=== PATIENT | male | born 1985 | race Caucasian/White ===

== ENCOUNTER 2017-10-26 15:50 | Emergency (ER) | payer OTHER, BC ==
[2017-10-26 16:12] VITALS: BP 115/75; PULSE 99; TEMP 98.7; BMI 23.7
--- NOTE | 2017-10-26 16:13 | PDOC ---
Rapid Medical Evaluation Chief Complaint: Migraine Headache Time Seen by Provider: 10/26/17 16:07 Medical Evaluation: Allergies Allergy/AdvReac Type Severity Reaction Status Date / Time No Known Allergies Allergy Verified 08/06/14 14:50 10/26/17 16:09 I have performed a brief in-person evaluation of this patient. The patient presents with a chief complaint of: headaches x 1 month intermittently, came in today as he now has insurance. Took his mother in law's fioricit yesterday which improved symptoms Pertinent physical exam findings:unremarkable I have ordered the following:nothing The patient will proceed to the ED for further evaluation.
--- NOTE | 2017-10-26 17:49 | PDOC ---
History of Present Illness - General Chief Complaint: Headache Stated Complaint: MIGRAINES Time Seen by Provider: 10/26/17 16:07 History Source: Patient Exam Limitations: No Limitations - History of Present Illness Initial Comments: 10/26/17 17:46 CHIEF COMPLAINT: Intermittent headache for one month reports "it's debilitating " HISTORY OF PRESENT ILLNESS: Patient is a 32-year-old male with history of headache however was never evaluated by neurology presents with one month of increasing headache in intensity associated with photophobia, no vomiting, no dizziness. Reports not having insurance for several months and has attempted to take Tylenol, Motrin, Advil, Aleve, without resolved symptoms. Patient reports that it is affecting his job and unable to work a regular basis. Has taken his [id number]'s Fioricet with resolve of symptoms. Requesting Fioricet. Timing/Duration: reports: other (for one month increase in intensity) Associated Symptoms: denies: fatigue, fever/chills, insomnia, loss of consciousness, muscle spasms, nausea/vomiting, numbness in legs/feet, paresthesia, ringing in ears, seizures, sleepy, slurred speech, tingling in legs /feet, trouble walking, vision changes, weakness Past History - Past Medical History Allergies/Adverse Reactions: Allergies Allergy/AdvReac Type Severity Reaction Status Date / Time No Known Allergies Allergy Verified 10/26/17 16:12 Home Medications: Ambulatory Orders Acetaminophen/Caffeine/Butalb [Fioricet -] 1 tab PO Q4H #18 tablet MDD 6 Acetaminophen/Caffeine/Butalb [Fioricet -] 1 tab PO Q4H #18 tablet MDD 6 COPD: No - Suicide/Smoking/Psychosocial Hx Smoking History: Current every day smoker Number of Cigarettes Smoked Daily: 10 Information on smoking cessation initiated: No Hx Alcohol Use: No Substance Use Type: Marijuana Review of Systems - Review of Systems Constitutional: No: Fever HEENTM: Yes: Symptoms Reported, Other (positive photophobia). No: Eye Pain, Blurred Vision, Tearing, Recent change in vision, Double Vision, Cataracts, Throat Pain, Throat Swelling, Difficulty Swallowing, Mouth Swelling Respiratory: No: Symptoms reported Cardiac (ROS): No: Symptoms Reported ABD/GI: No: Symptoms Reported Musculoskeletal: No: Symptoms Reported Integumentary: No: Symptoms Reported Neurological: No: Symptoms reported Hematologic/Lymphatic: No: Symptoms Reported All Other Systems: Reviewed and Negative *Physical Exam - Vital Signs Last Vital Signs Temp Pulse Resp BP Pulse Ox 98.7 F 99 H 18 115/75 99 10/26/17 16:07 10/26/17 16:07 10/26/17 16:07 10/26/17 16:07 10/26/17 16:07 - Physical Exam General Appearance: Yes: Appropriately Dressed. No: Apparent Distress HEENT: positive: SHAILESH, Normal ENT Inspection, Normal Voice, Symmetrical, TMs Normal, Pharynx Normal, Other (no nystagmus). negative: Pharyngeal Erythema, Tonsillar Exudate, Tonsillar Erythema, Nasal Congestion, Rhinorrhea, Sinus Tenderness, TM Bulging, TM Erythema Neck: positive: Trachea midline. negative: Tender, Tender lateral, Tender midline Respiratory/Chest: positive: Lungs Clear, Normal Breath Sounds Cardiovascular: positive: Regular Rhythm, Regular Rate Lymphatic: negative: Adenopathy Musculoskeletal: positive: Normal Inspection Integumentary: positive: Normal Color, Dry Neurologic: positive: mailing specialist II-XII NML intact, Fully Oriented, Alert, Normal Mood/ Affect, Normal Response, Motor Strength 5/5 ED Treatment Course - RADIOLOGY Radiology Studies Ordered: Category Date Time Status HEAD CT WITHOUT CONTRAST [CT] Stat CT Scan 10/26/17 17:37 Ordered Medical Decision Making - Medical Decision Making 10/26/17 17:49 A/P: Patient here with migraine, photophobia, has never been evaluated by neurology however PMD. Patient reports that headache is increasing in intensity , tension-like in nature. Because patient is noted been evaluated with increase intensity of headache over the last 4 weeks will perform head CT 10/26/17 19:46 CT scan with no acute intracranial pathology or sinusitis. Will DC on Fioricet follow-up with neurology *DC/Admit/Observation/Transfer Diagnosis at time of Disposition: Migraine Qualifiers: Migraine type: unspecified Status migrainosus presence: with status migrainosus Intractability: not intractable Qualified Code(s): G43.901 - Migraine, unspecified, not intractable, with status migrainosus - Discharge Dispostion Disposition: HOME Condition at time of disposition: Stable Admit: No - Prescriptions Prescriptions: Acetaminophen/Caffeine/Butalb [Fioricet -] 1 tab PO Q4H #18 tablet MDD 6 Acetaminophen/Caffeine/Butalb [Fioricet -] 1 tab PO Q4H #18 tablet MDD 6 - Referrals Referrals: Ranjit Ernst DO [Staff Physician] - - Patient Instructions Printed Discharge Instructions: Migraine Headaches (Alternative Therapy) Additional Instructions: Increase fluid intake, may take Tylenol for minor headache, Fioricet for increased headache please follow-up with neurology as soon as possible. - Post Discharge Activity Forms/Work/School Notes: Back to Work
== END 2017-10-26 20:20 | disposition home or self-care (01) ==
LOC: JERFT 15:50
DX: G43.901 Migraine, unspecified, not intractable, with status migrainosus (principal)
CPT/HCPCS: 70450-TC; 99281-25

== ENCOUNTER 2018-07-04 21:47 | Inpatient (IN) | payer BC, OTHER ==
--- NOTE | 2018-07-04 21:55 | PDOC ---
Rapid Medical Evaluation Time Seen by Provider: 07/04/18 21:50 Medical Evaluation: Allergies Allergy/AdvReac Type Severity Reaction Status Date / Time No Known Allergies Allergy Verified 10/26/17 16:12 07/04/18 21:50 Pt reports falling today. Pt states he took two fiorcets and he fell up the stairs. Denies LOC or hitting his head. He states he feels fine at this time. States his mother thought he looked dizzy, so she called the ambulance. Admits to smoking marijuana Exam: NAD, AAOx3 Orders: utox Pt to proceed to ED for further evaluation Discharge Disposition - Diagnosis Fall - Referrals - Patient Instructions - Post Discharge Activity
[2018-07-04 21:56] VITALS: BMI 26.5
[2018-07-04] MEDS ORDERED: SODIUM CHLORIDE 1,000 ML IV STA (22:23)
[2018-07-04 22:44] LABS: COCAINE, UR NEGATIVE ng/ml (CUTOFF=300); METHADONE, UR NEGATIVE ng/ml (CUTOFF=300); OPIATES, URI NEGATIVE ng/ml (CUTOFF=300); PHENCYCLIDINE,URINE NEGATIVE ng/ml (CUTOFF=25); URINE AMPHETAMINES NEGATIVE ng/ml (CUTOFF=500); URINE BENZODIAZEPINES NEGATIVE ng/ml (CUTOFF=200)
[2018-07-04 22:48] LABS: URINE BARBITURATES POSITIVE ng/ml (CUTOFF=200)
--- NOTE | 2018-07-04 22:54 | PDOC ---
History of Present Illness - General Chief Complaint: Substance Abuse Stated Complaint: OVERDOSAGE Time Seen by Provider: 07/04/18 21:50 History Source: Patient - History of Present Illness Initial Comments: 07/04/18 22:46 32 year male reports taking 2 fiorecet for headache. denies using drug prior to this. patient reports smoking marijuana and cigarettes however denies any use today. as per mom patient fell and is with slurred speech . mom called 911 due to altered mental status and falling up the stairs. as per mom patient has been abusing percocets. patient denies any drug use. denies HI/SI Past History - Past Medical History Allergies/Adverse Reactions: Allergies Allergy/AdvReac Type Severity Reaction Status Date / Time No Known Allergies Allergy Verified 07/04/18 21:53 Home Medications: Ambulatory Orders Acetaminophen/Caffeine/Butalb [Fioricet -] 1 tab PO Q4H #18 tablet MDD 6 Acetaminophen/Caffeine/Butalb [Fioricet -] 1 tab PO Q4H #18 tablet MDD 6 COPD: No - Suicide/Smoking/Psychosocial Hx Smoking History: Current every day smoker Number of Cigarettes Smoked Daily: 20 Information on smoking cessation initiated: No Hx Alcohol Use: No Drug/Substance Use Hx: Yes ([facility]) Substance Use Type: Marijuana Review of Systems - Review of Systems Able to Perform ROS?: Yes Is the patient limited Swiss proficient: No Constitutional: No: Symptoms Reported, See HPI, Chills, Diaphoresis, Fever, Loss of Appetite, Malaise, Night Sweats, Weakness, Weight Stable, Unintentional Wgt. Loss, Unexplained wgt Loss, Other Neurological: Yes: Headache, Weakness *Physical Exam - Vital Signs Last Vital Signs Temp Pulse Resp BP Pulse Ox 97.7 F 71 18 104/46 L 99 07/04/18 21:54 07/04/18 21:54 07/04/18 21:54 07/04/18 21:54 07/04/18 21:54 - Physical Exam General Appearance: Yes: Other (slurred speech) Respiratory/Chest: positive: Lungs Clear, Normal Breath Sounds Cardiovascular: positive: Regular Rate Gastrointestinal/Abdominal: positive: Normal Bowel Sounds, Soft Musculoskeletal: positive: Normal Inspection Extremity: positive: Normal Capillary Refill, Normal Inspection, Normal Range of Motion Integumentary: positive: Normal Color, Dry, Warm Neurologic: positive: Confused, Disoriented, Other (sluured speech, repeating self). negative: Fully Oriented ED Treatment Course - LABORATORY CBC & Chemistry Diagram: 07/04/18 23:44 07/04/18 23:44 - ADDITIONAL ORDERS Additional order review: Laboratory Results 07/04/18 22:00 Opiates Screen Negative Methadone Screen Negative Phencyclidine Screen Negative Ur Amphetamines Screen Negative MDMA (Ecstasy) Screen Negative Benzodiazepines Screen Negative Cocaine Screen Negative U Marijuana (THC) Screen Negative - RADIOLOGY Radiology Studies Ordered: Category Date Time Status HEAD CT WITHOUT CONTRAST [CT] Stat CT Scan 07/04/18 22:26 Ordered Medical Decision Making - Medical Decision Making 07/04/18 22:48 Poison control reports with baribiturates hypotension and hypothermia are common in overdoses. recommendation includes Tylenol and salicylate levels.EKG q4-6hours , tylenol level 4 hours from of ingestions. IVF, monitoring recommended. monitor patient for atleast 8 hours. [place] gross Pharmacist [id number] : Poison control 07/05/18 01:11 patient placed on observation status. 07/05/18 01:[address] out to Dr[address] Tanner/ Loraine Jones *DC/Admit/Observation/Transfer Diagnosis at time of Disposition: Fall Qualifiers: Encounter type: initial encounter Qualified Code(s): W19.XXXA - Unspecified fall, initial encounter Barbiturate poisoning Qualifiers: Encounter type: initial encounter Injury intent: accidental or unintentional Qualified Code(s): T42.3X1A - Poisoning by barbiturates, accidental ( unintentional), initial encounter - Discharge Dispostion Decision to Admit order: Yes - Referrals - Patient Instructions - Post Discharge Activity
[2018-07-04] MEDS ORDERED: SODIUM CHLORIDE 1,000 ML IV SCH (23:00)
[2018-07-05 00:12] LABS: BASO % 0.5 % (0-2.0); EOS % 2.3 % (0-4.5); HEMATOCRIT 39.6 % (35.4-49); HEMOGLOBIN 13.2 GM/dL (11.7-16.9); MCH 29.6 pg (25.7-33.7); MCHC 33.3 g/dl (32.0-35.9); MEAN CELL VOLUME 88.8 fl (80-96); MEAN PLT VOLUME 8.3 fl (7.5-11.1); MONO % 11.3 % (3.8-10.2); NEUT % 51.9 % (42.8-82.8); PLATELET COUNT 280 K/MM3 (134-434); RBC 4.46 M/mm3 (4.00-5.60); RDW 13.5 % (11.9-15.9); WHITE BLOOD COUNT 7.4 K/mm3 (4.0-10.0)
[2018-07-05 00:25] LABS: INR 0.97 (0.83-1.09); PROTHROMBIN TIME (PATIENT) 11.4 SEC (9.7-13.0)
[2018-07-05 00:37] LABS: ALBUMIN 4.2 g/dl (3.4-5.0); ALK PHOS 127 U/L (45-117); ANION GAP 5 MMOL/L (8-16); BILIRUBIN,TOTAL 0.4 mg/dL (0.2-1); BLOOD UREA NITROGEN 11 mg/dL (7-18); CALCIUM 8.8 mg/dL (8.5-10.1); CHLORIDE 105 mmol/L (98-107); CO2 25 mmol/L (21-32); GLUCOSE,RANDOM 81 mg/dL (74-106); POTASSIUM 3.9 mmol/L (3.5-5.1); SGOT/AST 18 U/L (15-37); SGPT/ALT 18 U/L (13-61); SODIUM 135 mmol/L (136-145); TOT PROT 7.4 g/dl (6.4-8.2)
[2018-07-05] MEDS ORDERED: SODIUM CHLORIDE 1,000 ML IV SCH ×2 (02:00→10:45)
--- NOTE | 2018-07-05 02:07 | HP ---
CHIEF COMPLAINT: barbituate overdose PCP: HISTORY OF PRESENT ILLNESS: Patient is a 32/yo male with no past medical history who presents for fall. Patient has a history of migraines and Dr. Dominguez prescribes him Fityront. He had a headache at 3 am yesterday so he took two pills around 5 pm. At & pm he reports he was trying to walk upstairs when he feel and hit his head. He reports he fell because the stairs are steep. His mother saw him and noted he looked off so she called an ambulance. Patient has take this medication in the past with no side effects. He currently denies being dizzy or having a headache. The ED called poison controlled and the patient must be watched for 8 hours after suspected overdose. Patient denies suicidal ideation. ER course was notable for: (1) 1 L NS (2) (3) Recent Travel: PAST MEDICAL HISTORY: migraines PAST SURGICAL HISTORY: Social History: Smoking: pack a day Alcohol: Drugs: marijuana Family History: Allergies No Known Allergies Allergy (Verified 07/04/18 21:53) HOME MEDICATIONS: Home Medications Medication Instructions Recorded Acetaminophen/Caffeine/Butalb 1 tab PO Q4H #18 tablet MDD 6 10/26/17 [Fioricet -] REVIEW OF SYSTEMS CONSTITUTIONAL: Absent: fever, chills, diaphoresis, generalized weakness, malaise, loss of appetite, weight change HEENT: Absent: rhinorrhea, nasal congestion, throat pain, throat swelling, difficulty swallowing, mouth swelling, ear pain, eye pain, visual changes CARDIOVASCULAR: Absent: chest pain, syncope, palpitations, irregular heart rate, lightheadedness , peripheral edema RESPIRATORY: Absent: cough, shortness of breath, dyspnea with exertion, orthopnea, wheezing, stridor, hemoptysis GASTROINTESTINAL: Absent: abdominal pain, abdominal distension, nausea, vomiting, diarrhea, constipation, melena, hematochezia GENITOURINARY: Absent: dysuria, frequency, urgency, hesitancy, hematuria, flank pain, genital pain MUSCULOSKELETAL: Absent: myalgia, arthralgia, joint swelling, back pain, neck pain SKIN: Absent: rash, itching, pallor HEMATOLOGIC/IMMUNOLOGIC: Absent: easy bleeding, easy bruising, lymphadenopathy, frequent infections ENDOCRINE: Absent: unexplained weight gain, unexplained weight loss, heat intolerance, cold intolerance NEUROLOGIC: Absent: headache, focal weakness or paresthesias, dizziness, unsteady gait, seizure, mental status changes, bladder or bowel incontinence PSYCHIATRIC: Absent: anxiety, depression, suicidal or homicidal ideation, hallucinations. PHYSICAL EXAMINATION Vital Signs - 24 hr 07/04/18 21:54 Temperature 97.7 F Pulse Rate 71 Respiratory 18 Rate Blood Pressure 104/46 L O2 Sat by Pulse 99 Oximetry (%) GENERAL: Awake, alert, and fully oriented, in no acute distress. HEAD: Normal with no signs of trauma. EYES: Pupils equal, round and reactive to light, extraocular movements intact EARS, NOSE, THROAT: Moist mucous membranes. NECK: Normal range of motion, supple without lymphadenopathy, JVD, or masses. LUNGS: Breath sounds equal, clear to auscultation bilaterally. No wheezes, and no crackles. No accessory muscle use. HEART: Regular rate and rhythm, normal S1 and S2 without murmur, rub or gallop. ABDOMEN: Soft, nontender, not distended, normoactive bowel sounds, no guarding, no rebound, no masses. MUSCULOSKELETAL: Normal range of motion at all joints. LOWER EXTREMITIES: 2+ pulses, warm, well-perfused. No calf tenderness. No peripheral edema. NEUROLOGICAL: Cranial nerves II-XII intact. Normal speech. Normal gait. PSYCHIATRIC: Cooperative. Good eye contact. SKIN: Warm, dry, normal turgor, no rashes or lesions noted, normal capillary refill. Laboratory Results - last 24 hr CBC, BMP 07/04/18 23:44 07/04/18 23:44 ASSESSMENT/PLAN: Patient is a 32/yo male with no past medical history who presents for fall. #fall r/o barbituate overdose - tox screen positive for barbituate - poison control: monitor for signs of hypotension or hypothermia - EKG q4 - seizure precautions, fall precautions - acetaminophen level low 5 - NPO - f/u orthostatics - monitor tele obs, minimum 8 hours after suspected overdose #chronic migraines - follows with Dr. Dominguez - gabriella Benito prjeramy Visit type - Emergency Visit Emergency Visit: Yes ED Registration Date: 07/05/18 Care time: The patient presented to the Emergency Department on the above date and was hospitalized for further evaluation of their emergent condition. - New Patient This patient is new to me today: Yes Date on this admission: 07/05/18 - Critical Care Critical Care patient: No
--- NOTE | 2018-07-05 02:55 | PN ---
Teaching Attending Note Name of Resident: Va Tanner ATTENDING PHYSICIAN STATEMENT I saw and evaluated the patient. I reviewed the resident's note and discussed the case with the resident. I agree with the resident's findings and plan as documented. SUBJECTIVE: Seen and examined. Patient is a 32 y/o HM with a PMH significant for chronic migraines who follows with neurology as an outpatient. He presents to the ER for suspected barbituate overdose. Please refer to resident note for additional historical info. In summation the patient tells me that at 3PM he had a headache and took 2-3 fiorcet which is what he normally takes at home for his migranes. It does make him sleepy. At ~7PM his mother saw him fall going up the stairs. He denies being down for a prolonged period, denies syncopal sx , etc. He denies this happening before, but insists that he was not dizzy and that this was just a mechanical fall. He is awake, alert, orientated, having meaningful conversation, and ambulated >100 feet while in the ER. ER called poison control who recommended repeating APAP level in 4 hours and to repeat EKG. He denies any SI/HI, depression, etc. He states he was just treating his migraine and didn't take any more medication than he normally does. Patient's mother aparently was concerned that he was abusing percocet per ER documentation. History of marijuana use but negative tox for this and opiates. 10 sys ROS done and negative aside from HPI PMH and PSH per chart Social denies drug abuse with negative Utox, unloads trucks for a living, tobacco user FH asked and noncontributory OBJECTIVE: VSS, labs and imaging reviewed NAD AAOx3 resting in bed Gait wnl, speech fluid, no CN deficits, sensorium intact Judgement and insight average, denies SI, affect normal, appropriate behavior, normal mood RRR s1/2 no mgr Lungs CTAB with sym exp NT ND +BS Trachea midline, no JVD ASSESSMENT AND PLAN: Mr. Glez is a 32 y/o HM presenting for suspected barbituate overdose with his fiorcet. He denies overdosing and states he only took 2-3 of his fiorcet and denies any SI. Imaging negative, vitals and labs wnl. Poison control recommended trending APAP and EKG. 1) Suspected barbituate overdose -UTox only + for barbituate; concern for marijuana and opiate use per HPI and ER records but negative on tox. States he only took his normal dose of fioricet. Aparently when the mother found him he was slurring his words and altered but he appears at baseline now. -Check orthostatic VS, monitor on tele, repeat labs and EKG in 4 hours ( including APAP level). If all done will be likely clear for DC. As no suicidal ideation we can forego psych consult -Monitor neuro checks, monitor for hypothermia -Recommend cessasion from all ilicit substances -Consider discussing with his neurologist cessasion of the fiorcet and trialing another tx 2) Chronic Migraines -On fiorcet, just saw his neurologist on day prior to admit. -Consider speaking to his OP provider about changing up his medication 3) Fall -He states it is mechanical due to steep steps. No high degree AV blocks or suspect arrhythmias. No syncope per patient. Monitor on telemetry. Check orthostatic VS. Use of fiorcet could have predispositioned him to a fall 4) Suspected Percocet abuse -In ER documentation, concern communicated by mother -Negative UTox; encourage avoidance of all controlled substances Full Code
--- NOTE | 2018-07-05 06:51 | DS ---
Physical Exam: SUBJECTIVE: Patient seen and examined. No acute events overnight. Pt. denies any complaints. Pt. asking to leave. Pt.'s mother and brother requested to speak with me. Per mother, high suspicion for drug abuse at home. Mother was adamnant that Pt. would be unable to return home without going to detox program first. Pt. amenable to staying in the hospital for a 1L fluid bolus to reassess orthostatics. Mother insisted we contact Dr. Mistry to present Pt. with all his "options." OBJECTIVE: Vital Signs Period Temp Pulse Resp BP Sys/Reich Pulse Ox Last 24 Hr 97.7 F-97.8 F 71-77 16-18 104-115/46-59 97-99 PHYSICAL EXAM GENERAL: The patient is awake, alert, and fully oriented, in no acute distress. EYES: PERRL, extraocular movements intact, sclera anicteric, conjunctiva clear. ENT: Ears normal, nares patent, oropharynx clear without exudates, moist mucous membranes. NECK: Trachea midline, full range of motion, supple. LUNGS: Breath sounds equal, clear to auscultation bilaterally, no wheezes, no crackles, no accessory muscle use. HEART: Regular rate and rhythm, S1, S2 without murmur ABDOMEN: Soft, nontender, nondistended, normoactive bowel sounds, no guarding, no rebound EXTREMITIES: 2+ left radial pulse, warm, well-perfused, no edema. NEUROLOGICAL: Normal speech, abnormal gait when asked to walk in tandem. Romberg + PSYCH: Normal mood, normal affect. SKIN: Warm, dry, normal turgor LABS Laboratory Results - last 24 hr 07/04/18 07/04/18 07/04/18 22:00 23:44 23:44 WBC 7.4 RBC 4.46 Hgb 13.2 Hct 39.6 MCV 88.8 MCH 29.6 MCHC 33.3 RDW 13.5 Plt Count 280 D MPV 8.3 Absolute Neuts (auto) 3.8 Neutrophils % 51.9 Lymphocytes % 34.0 Monocytes % 11.3 H Eosinophils % 2.3 Basophils % 0.5 Nucleated RBC % 0 PT with INR 11.40 INR 0.97 Sodium Potassium Chloride Carbon Dioxide Anion Gap BUN Creatinine Creat Clearance w eGFR Random Glucose Calcium Total Bilirubin AST ALT Alkaline Phosphatase Total Protein Albumin Salicylates Opiates Screen Negative Methadone Screen Negative Acetaminophen Barbiturate Screen Positive A* Phencyclidine Screen Negative Ur Amphetamines Screen Negative MDMA (Ecstasy) Screen Negative Benzodiazepines Screen Negative Cocaine Screen Negative U Marijuana (THC) Screen Negative Alcohol, Quantitative 07/04/18 07/04/18 07/04/18 23:44 23:44 23:44 WBC RBC Hgb Hct MCV MCH MCHC RDW Plt Count MPV Absolute Neuts (auto) Neutrophils % Lymphocytes % Monocytes % Eosinophils % Basophils % Nucleated RBC % PT with INR INR Sodium 135 L Potassium 3.9 Chloride 105 Carbon Dioxide 25 Anion Gap 5 L BUN 11 Creatinine 1.0 Creat Clearance w eGFR > 60 Random Glucose 81 Calcium 8.8 Total Bilirubin 0.4 AST 18 ALT 18 Alkaline Phosphatase 127 H Total Protein 7.4 Albumin 4.2 Salicylates 4.1 Cancelled Opiates Screen Methadone Screen Acetaminophen < 2.0 L Cancelled Barbiturate Screen Phencyclidine Screen Ur Amphetamines Screen MDMA (Ecstasy) Screen Benzodiazepines Screen Cocaine Screen U Marijuana (THC) Screen Alcohol, Quantitative < 3.0 07/05/18 04:00 WBC RBC Hgb Hct MCV MCH MCHC RDW Plt Count MPV Absolute Neuts (auto) Neutrophils % Lymphocytes % Monocytes % Eosinophils % Basophils % Nucleated RBC % PT with INR INR Sodium Potassium Chloride Carbon Dioxide Anion Gap BUN Creatinine Creat Clearance w eGFR Random Glucose Calcium Total Bilirubin AST ALT Alkaline Phosphatase Total Protein Albumin Salicylates Opiates Screen Methadone Screen Acetaminophen 5.1 L Barbiturate Screen Phencyclidine Screen Ur Amphetamines Screen MDMA (Ecstasy) Screen Benzodiazepines Screen Cocaine Screen U Marijuana (THC) Screen Alcohol, Quantitative HOSPITAL COURSE: Date of Admission:07/05/18 Date of Discharge: 07/05/18 Pt. admitted for syncopal episode likely orthostatic and to rule out cardiac etiology. EKG unremarkable x2. Troponin negative, D-dimer negative, UTox positive for barbituates. Head CT negative for acute pathology. Poison control was contacted on how to mange Fiorcet overdose, unlikely Pt. abused Fiorcet as Acetaminophen level was very low. Pt. elected to elope 07/05/18 at 7pm. Risks or recurrent syncopal episode, possible complications from repeated drug abuse, and were explained to patient prior to patient signing out AMA. Minutes to complete discharge: 32 Discharge Summary Reason For Visit: FALL POISONING BY BARBITUATE Current Active Problems Barbiturate poisoning (Acute) Fall (Acute) Condition: Good - Instructions Diet, Activity, Other Instructions: You came to the hospital because you had fallen down the stairs. We were concerned you may have taken too much of your Fiorcet. We have monitored you overnight and you are medically cleared to go home. If you have any further concerns please return to the Emergency Room. Please follow up with your primary care doctor within one week. Please discuss with your neurologist continued management of your migraines. Disposition: AGAINST MEDICAL ADVICE - Home Medications Comprehensive Discharge Medication List: Ambulatory Orders NK [No Known Home Medication] 07/05/18 This patient is new to me today: Yes Date on this admission: 07/05/18 Emergency Visit: Yes ED Registration Date: 07/05/18 Care time: The patient presented to the Emergency Department on the above date and was hospitalized for further evaluation of their emergent condition. Critical Care patient: No - Discharge Referral Referred to [facility] Med P.C.: No
--- NOTE | 2018-07-05 12:01 | EKG ---
Test Reason : Blood Pressure : / mmHG Vent. Rate : 068 BPM Atrial Rate : 068 BPM P-R Int : 136 ms QRS Dur : 094 ms QT Int : 392 ms P-R-T Axes : 049 012 022 degrees QTc Int : 416 ms NORMAL SINUS RHYTHM WITH SINUS ARRHYTHMIA NORMAL ECG NO PREVIOUS ECGS AVAILABLE Confirmed by KEN MADSEN, PIPO ([id number]) on 07/05/2018 12:01:47 PM Referred By: Confirmed By:PIPO ROGERS MD
--- NOTE | 2018-07-05 12:05 | EKG ---
Test Reason : Blood Pressure : / mmHG Vent. Rate : 059 BPM Atrial Rate : 059 BPM P-R Int : 134 ms QRS Dur : 096 ms QT Int : 400 ms P-R-T Axes : 051 048 048 degrees QTc Int : [address] ELEVATION, CONSIDER EARLY REPOLARIZATION BORDERLINE ECG WHEN COMPARED WITH ECG OF 05-JUL-2018 05:14, NO SIGNIFICANT CHANGE WAS FOUND Confirmed by KEN MADSEN, PIPO ([id number]) on 07/05/2018 12:04:46 PM Referred By: Jamar SALAZAR Confirmed By:PIPO ROGERS MD
--- NOTE | 2018-07-05 12:05 | EKG ---
Test Reason : Blood Pressure : / mmHG Vent. Rate : 056 BPM Atrial Rate : 056 BPM P-R Int : 134 ms QRS Dur : 094 ms QT Int : 416 ms P-R-T Axes : 055 059 050 degrees QTc Int : 401 ms SINUS BRADYCARDIA OTHERWISE NORMAL ECG WHEN COMPARED WITH ECG OF 04-JUL-2018 22:31, NO SIGNIFICANT CHANGE WAS FOUND Confirmed by PIPO ROGERS MD ([id number]) on 07/05/2018 12:04:50 PM Referred By: Confirmed By:PIPO ROGERS MD
[2018-07-05] MEDS ORDERED: SODIUM CHLORIDE 1,000 ML IV STA ×2 (14:22→14:27)
--- NOTE | 2018-07-05 14:43 | PN ---
Teaching Attending Note Name of Resident: Franky Jacobo ATTENDING PHYSICIAN STATEMENT I saw and evaluated the patient. I reviewed the resident's note and discussed the case with the resident. I agree with the resident's findings and plan as documented. SUBJECTIVE: No fever or chills. No pain , no light headedness or dizziness. NO fever or chills. he denied taking extra fioricet but took one earlier and then one before his syncope. reports good po intake . no fever ro chills. feels at base line OBJECTIVE: NAD Awake, alert , oriented, cooperative Lungs: CTAB CV: RRR Ext: no edema, no erythema. ASSESSMENT AND PLAN: 32 y/o man with h/o Migraines who presented with syncope. 1- Syncope: likely due to orthostatic hypotension. reports no overdosing on fioricet. took as prescribed. mom concerned for drug use. urine tox + for barbiturate only. tylenol level neg ( reported value of 5 was from a different patient, per RN ) - monitor closely - IVF then repeat orthostatics - no signs of infection - follow LFTS in am - EKG reviewed x 2 . no signs of blocks, arrhythmias, or NH . possible J point elevation. - repeat EKG and check trop . - no suspicion for PE as cause of syncope , WELLS score for PE is 0 and the clinical suspicion is low. check D dimer - pt is not suicidal and capable of making decisions
--- NOTE | 2018-07-05 15:37 | EKG ---
Test Reason : Blood Pressure : / mmHG Vent. Rate : 060 BPM Atrial Rate : 060 BPM P-R Int : 134 ms QRS Dur : 090 ms QT Int : 382 ms P-R-T Axes : 063 050 049 degrees QTc Int : 382 ms NORMAL SINUS RHYTHM WITH SINUS ARRHYTHMIA NORMAL ECG WHEN COMPARED WITH ECG OF 05-JUL-2018 10:20, NO SIGNIFICANT CHANGE WAS FOUND Confirmed by KEN MADSEN, PIPO ([id number]) on 07/05/2018 3:37:33 PM Referred By: DEBBI JERONIMO Confirmed By:PIPO ROGERS MD
[2018-07-05 16:00] VITALS: PULSE 67
[2018-07-05 18:39] VITALS: BP 109/63; TEMP 98.1
[2018-07-05 19:44] LABS: ALK PHOS 132 U/L (45-117); ANION GAP 9 MMOL/L (8-16); BILIRUBIN,TOTAL 0.5 mg/dL (0.2-1); BLOOD UREA NITROGEN 7 mg/dL (7-18); CALCIUM 8.4 mg/dL (8.5-10.1); CHLORIDE 112 mmol/L (98-107); CO2 19 mmol/L (21-32); CREATININE 0.9 mg/dL (0.55-1.3); GLUCOSE,RANDOM 74 mg/dL (74-106); POTASSIUM 4.4 mmol/L (3.5-5.1); SGOT/AST 13 U/L (15-37); SGPT/ALT 17 U/L (13-61); SODIUM 140 mmol/L (136-145); TOT PROT 7.2 g/dl (6.4-8.2)
--- NOTE | 2018-07-05 19:44 | PN ---
Progress Note (short form) - Note Progress Note: call center rn resident was paged by RN, informed that patient has left the hospital. Patient had signed the AMA form, however, no physician had explained the risks of leaving the hospital at this time, against medical advice. network program manager informs me that patient had discussion with medical staff director earlier this afternoon regarding risks of leaving the hospital. However, no physician had signed the AMA paperwork, as patient did not want to speak with physician further at time of leaving the hospital. RN states that his peripheral IV line was removed before he left the hospital. Patient has left the hospital against medical advice.
== END 2018-07-05 19:29 | disposition left against medical advice (07) | DRG 204 ==
LOC: JER 21:47 → JERBED 07-05 00:13 → UNDOADMOB 07-05 00:50 → J4S 07-05 08:20 → OBSVTOIN 07-05 18:48
PROVIDERS: ADMIT Internal Medicine; ATTEND Internal Medicine
DX: I95.1 Orthostatic hypotension (principal); G43.909 Migraine, unspecified, not intractable, without status migrainosus; F17.210 Nicotine dependence, cigarettes, uncomplicated
CPT/HCPCS: 36415; 70450-TC; 80053; 80307; 84484; 85025; 85379; 85610; 93005; 93010; 99285-25; G0378; J7030

== ENCOUNTER 2021-02-13 21:46 | Emergency (ER) | payer OTHER ==
[2021-02-13 22:00] VITALS: TEMP 98.3; BMI 26.3
[2021-02-13 23:41] LABS: PH,URINE 6.5 (5.0-8.0); URINE APPEARANCE CLEAR; URINE BILIRUBIN NEGATIVE (NEGATIVE); URINE COLOR YELLOW; URINE GLUCOSE (UA) NEGATIVE (NEGATIVE); URINE KETONE TRACE (NEGATIVE); URINE LEUK ESTERASE NEGATIVE (NEGATIVE); URINE NITRITE NEGATIVE (NEGATIVE); URINE PROTEIN NEGATIVE (NEGATIVE)
[2021-02-14 03:44] VITALS: BP 125/84; PULSE 73
== END 2021-02-14 04:40 | disposition home or self-care (01) ==
LOC: JER 21:46
DX: N52.9 Male erectile dysfunction, unspecified (principal); R31.9 Hematuria, unspecified
CPT/HCPCS: 76775-TC; 76856-TC; 81003; 87086; 99284-25

== ENCOUNTER 2022-06-30 16:54 | Emergency (ER) | payer OTHER ==
[2022-06-30 17:19] VITALS: BP 106/71; PULSE 70; RESP 19; TEMP 98.5; BMI 32.3
[2022-06-30] MEDS ORDERED: KETOROLAC TROMETHAMINE 30 MG/1 ML VIAL IVPUSH ONE (19:47)
[2022-06-30] MEDS ORDERED: SODIUM CHLORIDE 0.9% 500 ML INFUS.BAG IV ONE (19:47)
[2022-06-30] MEDS ORDERED: KETOROLAC TROMETHAMINE 30 MG/1 ML VIAL ONE (19:56)
[2022-06-30 20:14] LABS: BASO % 0.3 % (0-2.0); EOS % 0.3 % (0-4.5); HEMATOCRIT 36.4 % (35.4-49); HEMOGLOBIN 12.5 GM/dL (11.7-16.9); LYMPH % 15.8 % (8-40); MCH 30.2 pg (25.7-33.7); MCHC 34.3 g/dl (32.0-35.9); MEAN PLT VOLUME 8.6 fl (7.5-11.1); MONO % 8.8 % (3.8-10.2); NEUT % 74.8 % (42.8-82.8); PLATELET COUNT 279 10^3/uL (134-434); RBC 4.13 M/mm3 (4.00-5.60); RDW 13.3 % (11.9-15.9); WHITE BLOOD COUNT 9.7 K/mm3 (4.0-10.0)
[2022-06-30 20:16] LABS: EPI CELLS 6 /uL (0-25.1); HYALINE CASTS 1 /uL (0-3.1); URINE APPEARANCE CLOUDY; URINE BACTERIA 3 /uL (0-1359); URINE BILIRUBIN NEGATIVE (NEGATIVE); URINE COLOR DK YELLOW; URINE GLUCOSE (UA) NEGATIVE (NEGATIVE); URINE KETONE TRACE (NEGATIVE); URINE LEUK ESTERASE TRACE (NEGATIVE); URINE NITRITE NEGATIVE (NEGATIVE); URINE PROTEIN 1+ (NEGATIVE); URINE RBC 4473 /uL (0-23.9); URINE WBC 27 /uL (0-25.8)
[2022-06-30 20:39] LABS: CALCIUM 9.2 mg/dL (8.5-10.1)
[2022-06-30 20:40] LABS: ALBUMIN 4.5 g/dl (3.4-5.0); BLOOD UREA NITROGEN 11.4 mg/dL (7-18)
[2022-06-30 20:43] LABS: CREATININE 1.1 mg/dL (0.55-1.3)
[2022-06-30 20:44] LABS: BILIRUBIN,TOTAL 0.5 mg/dL (0.2-1); TOT PROT 7.3 g/dl (6.4-8.2)
== END 2022-06-30 22:32 | disposition home or self-care (01) ==
LOC: JER 16:54
PROC: 3E033GC Introduction of Other Therapeutic Substance into Peripheral Vein, Percutaneous Approach (ICD-10-PCS; principal; 2022-06-30)
DX: R31.9 Hematuria, unspecified (principal)
CPT/HCPCS: 36415; 74176-TC; 80053; 81003; 85025; 87086; 99285-25

== ENCOUNTER 2022-07-02 09:33 | Emergency (ER) | payer OTHER ==
[2022-07-02 09:48] VITALS: BP 121/79; PULSE 68; RESP 18; TEMP 98; BMI 25.7
[2022-07-02] MEDS ORDERED: ACETAMINOPHEN 500 MG TABLET (FP) PO ONE (10:43)
[2022-07-02] MEDS ORDERED: ACETAMINOPHEN 325 MG TABLET (FP) ONE (10:46)
[2022-07-02 11:27] LABS: BASO % 0.3 % (0-2.0); EOS % 0.9 % (0-4.5); HEMATOCRIT 38.3 % (35.4-49); LYMPH % 14.1 % (8-40); MCH 29.5 pg (25.7-33.7); MCHC 34.1 g/dl (32.0-35.9); MEAN CELL VOLUME 86.6 fl (80-96); MEAN PLT VOLUME 8.6 fl (7.5-11.1); MONO % 9.9 % (3.8-10.2); NEUT % 74.8 % (42.8-82.8); PLATELET COUNT 292 10^3/uL (134-434); RBC 4.42 M/mm3 (4.00-5.60); RDW 13.2 % (11.9-15.9); WHITE BLOOD COUNT 9.8 K/mm3 (4.0-10.0)
[2022-07-02 11:34] LABS: EPI CELLS 4 /uL (0-25.1); HYALINE CASTS 1 /uL (0-3.1); PH,URINE 7.5 (5.0-8.0); URINE APPEARANCE CLEAR; URINE BACTERIA 2 /uL (0-1359); URINE BILIRUBIN NEGATIVE (NEGATIVE); URINE COLOR YELLOW; URINE GLUCOSE (UA) NEGATIVE (NEGATIVE); URINE KETONE NEGATIVE (NEGATIVE); URINE LEUK ESTERASE NEGATIVE (NEGATIVE); URINE NITRITE NEGATIVE (NEGATIVE); URINE PROTEIN NEGATIVE (NEGATIVE); URINE RBC 58 /uL (0-23.9); URINE UROBILINOGEN 0.2 mg/dL (0.2-1.0); URINE WBC 14 /uL (0-25.8)
[2022-07-02 11:45] LABS: CALCIUM 9.3 mg/dL (8.5-10.1)
[2022-07-02 11:46] LABS: ALBUMIN 4.3 g/dl (3.4-5.0); BLOOD UREA NITROGEN 9.2 mg/dL (7-18)
[2022-07-02 11:51] LABS: BILIRUBIN,TOTAL 0.4 mg/dL (0.2-1); CREATININE 1.1 mg/dL (0.55-1.3); TOT PROT 7.5 g/dl (6.4-8.2)
== END 2022-07-02 13:34 | disposition home or self-care (01) ==
LOC: JER 09:33
DX: R10.9 Unspecified abdominal pain (principal)
CPT/HCPCS: 36415; 80053; 81003; 85025; 87086; 99283-25